=== PATIENT | female | born 1995 | race Caucasian/White ===

== ENCOUNTER 2020-04-05 14:16 | Outpatient (CLI) | payer OTHER, SELFPAY ==
--- NOTE | ~2020-04-05 | US_ITS ---
EXAMINATION: US OB >= 14 weeks Fetus EXAM DATE: 04/05/2020 14:45 INDICATION: For dating. Irregular periods. . Second trimester. TECHNIQUE: Pelvic obstetrical transabdominal sonogram was performed by a technologist. There are mu ltiple grayscale and Doppler images available for interpretation. There are no earlier studies of th is gestation for comparison. FINDINGS: There is a single fetus identified in breech presentation with a heart rate of 163 beats pe r minute. The placenta is located in the posterior position. There is no sonographic evidence of ret roplacental hemorrhage identified. There is subjectively expected amount of amniotic fluid. Placenta l margin to internal cervical os distance is 3 cm. BIOMETRIC DATA: Biparietal diameter (BPD): 4.2cm ----------------> 18 weeks 6 days. Head circumference (HC): 15.6 cm ----------------> 18 weeks 4 days. Abdominal circumference (AC): 12.7 cm ----------> 18 weeks 2 days. Femur length (FL): 2.7 cm --------------------------> 18 weeks 1 day. These measurements are concordant. HC/AC ratio is 1.23 (The 5th -- 95th percentile range is 1.08-1.27. Estimated weight is 232 g +/- 35 g. This is the <3 percentile when the currently reported [facility] gestation age 22 weeks 2 days, clinical estimated date of delivery (SUMMER-OPE) 08/07/2020 is used. F etal estimated gestational age based on measurements from this exam is 18 weeks 3 days, with an estim ated date of delivery (SUMMER-AUA) 09/03. Consider possibility of one period discrepancy between clinical ly suspected and actual implantation given that the measurements on this exam are concordan t. IMPRESSION: 1. Single fetus in breech presentation with heart rate 163 beats per minute. 2. Estimated weight of 232 grams, <3rd percentile using the currently reported clinical gestat ion age of 22 weeks 2 days. Age by this ultrasound with concordant measurements is 18 weeks 3 days w [facility] SUMMER 09/03/2020. Reviewed, dictated and finalized at location A. IMPRESSION: 1. Single fetus in breech presentation with heart rate 163 beats per minute. 2. Estimated weight of 232 grams, <3rd percentile using the currently re ported clinical gestation age of 22 weeks 2 days. Age by this ultrasound with concordant measurements is 18 weeks 3 days with SUMMER 09/03/2020.
== END 2020-04-05 14:17 | disposition home or self-care (01) ==
PROVIDERS: Visit Provider Student in an Organized Health Care Education/Training Program
DX: Z34.90 Encounter for supervision of normal pregnancy, unspecified, unspecified trimester (principal); Z3A.22 22 weeks gestation of pregnancy
CPT/HCPCS: 76805

== ENCOUNTER 2020-07-06 13:43 | Outpatient (CLI) | payer OTHER, SELFPAY ==
[2020-07-06 15:25] LABS: Basophils Percent Auto 0.2 % (0.2-1.2); Eosinophils Absolute Auto 0.2 K/mm3 (0-0.3); Eosinophils Percent Auto 1.6 % (0-4.4); Hematocrit 34.8 % (37.0-47.0); Hemoglobin 11.8 g/dL (12.0-15.0); Immature Granulocyte Absolute 0.13 K/mm3 (0.00-0.031); Immature Granulocyte Percent A 0.9 % (0-0.5); Lymphocytes Absolute Auto 2.25 K/mm3 (0.9-3.2); Mean Corpuscular HGB Conc 33.9 g/dl (32-36); Mean Corpuscular Hemoglobin 29.7 pg (26-34); Mean Corpuscular Volume 87.7 fl (80-100); Mean Platelet Volume 11.1 fl (7.4-10.4); Monocytes Absolute Auto 1.2 K/mm3 (0.1-0.6); Monocytes Percent Auto 8.7 % (2.6-8.5); Neutrophils Absolute Auto 10.2 K/mm3 (1.3-6.7); Neutrophils Percent Auto 72.6 % (45.5-73.1); Platelet Count Result 296 k/mm3 (150-375); Red Blood Count 3.97 M/mm3 (4.2-5.4); White Blood Count 14.1 K/mm3 (4.5-10.0)
[2020-07-06 15:35] LABS: Glucose 1 Hour PP 50gm Dose 98 mg/dL
[2020-07-06 15:38] LABS: Add Urine Microscopic? YES; Appearance Urine Cloudy (Clear); Bacteria Urine Trace /hpf; Bilirubin Urine Negative (Negative); Blood Urine Negative (Negative); Color Urine Yellow (Yellow); Glucose Urine UA Negative (Negative); Ketones Urine Negative (Negative); Leukocyte Esterase Ur 3+ LEU/UL (NEGATIVE); Mucus Urine Moderate /lpf; Nitrate Urine Negative (Negative); Protein Urine 1+ mg/dL (Negative); RBC Urine 0-2 /hpf (0-2); Specific Grav Ur 1.028 (1.001-1.035); Squamous Epithelial Cell Urine Many /hpf (Few); Urobilinogen Urine Negative mg/dL (<2.0)
[2020-07-06 16:40] LABS: Vitamin D 25 Hydroxy 30.2 ng/mL
[2020-07-06 16:54] LABS: Hepatitis B Surface Antigen Negative (Negative)
[2020-07-06 17:10] LABS: Hepatitis C Virus Antibody Negative (Negative)
[2020-07-07 10:21] LABS: Rapid Plasma Reagin Non-Reactive (NonReactive)
[2020-07-10 15:39] LABS: Varicella IgG Antibody <135.00 Index (>=165.00)
[2020-07-12 23:56] LABS: Hematocrit 36.3 % (35.0-45.0); MCH 30.2 pg (27.0-33.0); MCV 91.1 FL (80.0-100.0); RDW 13.8 % (11.0-15.0); Red Blood Cell Count 3.98 Mill/uL (3.80-5.10)
[2020-07-14 19:01] LABS: CF Result NEGATIVE (NEGATIVE)
== END 2020-07-06 13:44 | disposition home or self-care (01) ==
PROVIDERS: Visit Provider Student in an Organized Health Care Education/Training Program
DX: Z34.90 Encounter for supervision of normal pregnancy, unspecified, unspecified trimester (principal); Z3A.00 Weeks of gestation of pregnancy not specified
CPT/HCPCS: 36415; 81001; 81220; 81243; 82306; 82947; 83021; 84443; 85025; 85461; 86592; 86762; 86787; 86803; 87086; 87340

== ENCOUNTER 2020-07-13 16:48 | Outpatient (CLI) | payer OTHER, SELFPAY | END 2020-07-13 16:49 | disposition home or self-care (01) | PROVIDERS: Visit Provider Student in an Organized Health Care Education/Training Program | DX: Z34.03 Encounter for supervision of normal first pregnancy, third trimester (principal); Z3A.32 32 weeks gestation of pregnancy | CPT/HCPCS: 36415; 85461; 90384; 96372; J2790 ==

== ENCOUNTER 2020-08-02 14:39 | Outpatient (CLI) | payer OTHER, SELFPAY ==
[2020-08-02 14:58] VITALS: BP 140/90; PULSE 111
[2020-08-02 15:16] VITALS: BP 140/88; PULSE 114
[2020-08-02 15:31] VITALS: BP 133/76; PULSE 120
[2020-08-02 15:33] LABS: Basophils Percent Auto 0.3 % (0.2-1.2); Eosinophils Absolute Auto 0.2 K/mm3 (0-0.3); Eosinophils Percent Auto 1.5 % (0-4.4); Hemoglobin 10.4 g/dL (12.0-15.0); Immature Granulocyte Percent A 0.9 % (0-0.5); Lymphocytes Absolute Auto 1.84 K/mm3 (0.9-3.2); Lymphocytes Percent Auto 16.7 % (18.3-44.2); Mean Corpuscular HGB Conc 33.5 g/dl (32-36); Mean Corpuscular Hemoglobin 28.9 pg (26-34); Mean Corpuscular Volume 86.1 fl (80-100); Mean Platelet Volume 11.5 fl (7.4-10.4); Monocytes Absolute Auto 0.9 K/mm3 (0.1-0.6); Neutrophils Percent Auto 72.6 % (45.5-73.1); Platelet Count Result 241 k/mm3 (150-375); Red Cell Distribution Width 13.2 % (11.5-14.5)
[2020-08-02 15:38] LABS: Add Urine Microscopic? YES; Appearance Urine Cloudy (Clear); Bacteria Urine Trace /hpf; Bilirubin Urine Negative (Negative); Blood Urine Negative (Negative); Color Urine Yellow (Yellow); Glucose Urine UA Negative (Negative); Ketones Urine Negative (Negative); Leukocyte Esterase Ur 3+ LEU/UL (NEGATIVE); Mucus Urine Few /lpf; Nitrate Urine Negative (Negative); Protein Urine 1+ mg/dL (Negative); RBC Urine 0-2 /hpf (0-2); Specific Grav Ur 1.031 (1.001-1.035); Squamous Epithelial Cell Urine Moderate /hpf (Few); Urobilinogen Urine Negative mg/dL (<2.0); WBC Urine 16-20 /hpf (0-3)
[2020-08-02 15:46] VITALS: BP 127/86; PULSE 93
[2020-08-02 15:58] LABS: Alanine Aminotransferase 23 U/L (4-35); Albumin Level 3.3 g/dL (3.5-5.1); Alkaline Phosphatase 136 U/L (38-126); Anion Gap 5 mmol/L (8-16); Aspartate Amino Transferase 26 U/L (14-36); Bilirubin,Total 0.1 mg/dL (0.2-1.3); Blood Urea Nitrogen 8 mg/dL (7-17); Calcium 8.7 mg/dL (8.4-10.2); Carbon Dioxide 25 mmol/L (22-30); Chloride 101 mmol/L (98-107); Estimated Glomerular Filt Rate > 60; Glucose 103 mg/dL (65-105); Sodium 131 mmol/L (137-145); Uric Acid 3.1 mg/dL (2.5-7.5)
[2020-08-02 16:00] LABS: Creatinine Urine 155.4 mg/dL; Total Protein Urine Random 8 mg/dL
[2020-08-02 16:01] VITALS: BP 125/81; PULSE 106
[2020-08-02 16:38] LABS: HIV 1/2 Ab P24 Ag Result Negative (Negative)
[2020-08-02 17:07] VITALS: BP 125/81; PULSE 111
[2020-08-03 11:40] LABS: Rapid Plasma Reagin Non-Reactive (NonReactive)
== END 2020-08-02 16:54 | disposition home or self-care (01) ==
LOC: ANHOBOP 14:44 → ANHOBPP 14:45
PROVIDERS: Visit Provider Student in an Organized Health Care Education/Training Program
DX: O13.9 Gestational [pregnancy-induced] hypertension without significant proteinuria, unspecified trimester (principal); Z3A.00 Weeks of gestation of pregnancy not specified
CPT/HCPCS: 36415; 59025; 80053; 81001; 82570; 84156; 84550; 85025; 86592; 86703; 87086; 87088; 99199; G0432

== ENCOUNTER → 2020-08-03 | Outpatient (NON) | payer OTHER, SELFPAY ==
[2020-08-03 19:05] VITALS: BMI 34.8
[2020-08-03 20:48] LABS: Collection Time Urine 24 HOURS
[2020-08-03 20:49] LABS: Total Volume 24 Hour Urine 1900 ml
[2020-08-03 20:50] LABS: Patient Weight 209 Lbs
[2020-08-03 20:59] LABS: Creatinine Clearance Urine 165.9 ml/min (75-125); Total Protein Urine 24 Hr 190 MG/DAY (28-141); Total Protein Urine Random 10 mg/dL
== END | disposition home or self-care (01) ==
LOC: ANHOBOP 18:10
PROVIDERS: Visit Provider Student in an Organized Health Care Education/Training Program
DX: O13.9 Gestational [pregnancy-induced] hypertension without significant proteinuria, unspecified trimester (principal); Z3A.00 Weeks of gestation of pregnancy not specified
CPT/HCPCS: 81050; 82575; 84156

== ENCOUNTER 2020-08-16 09:04 | Outpatient (RCR) | payer OTHER, SELFPAY ==
--- NOTE | ~2020-08-16 | US_ITS ---
EXAMINATION: US OB follow up EXAM DATE: 08/16/2020 09:41 INDICATION: Check growth. Estimated weight, EDITH and presentation. 3rd trimester. TECHNIQUE: Pelvic obstetrical transabdominal sonogram was performed by a technologist. There are mu ltiple grayscale and Doppler images available for interpretation. Comparison is made to prior examina tion from 04/05/2020. FINDINGS: There is a single fetus identified in breech presentation with a heart rate of 144 beats pe r minute. The placenta is located in the posterior position. There is no sonographic evidence of ret roplacental hemorrhage identified. The amniotic fluid index is 18.2 centimeters, which is normal. BIOMETRIC DATA: Biparietal diameter (BPD): 9.6cm ----------------> 39 weeks 2 days. Head circumference (HC): 35.1 cm ----------------> 41 weeks 0 days. Abdominal circumference (AC): 34.0 cm ----------> 38 weeks 1 day. Femur length (FL): 7.2 cm --------------------------> 37 weeks 0 days. These measurements are discordant, with a low FL/HC ratio of 20.58 (The 5th -- 95th percentile range is 20.64-23.3). HC/AC ratio is 1.03 (The 5th -- 95th percentile range is 0.87-1.06). Estimated weight is 3465 g +/- 520 g. This is the 76th percentile when the currently reported clinical gestation age 37 weeks 5 days, clinical estimated date of delivery (SUMMER-OPE) 09/01/2020 is us ed. estimated gestational age based on measurements from this exam is 38 weeks 6 days, with an estimated date of delivery (SUMMER-AUA) 08/24/2020. IMPRESSION: 1. Single fetus in breech presentation with heart rate 144 beats per minute. 2. Estimated weight of 3465 grams, 76th percentile using the currently reported clinical gesta tion age of 37 weeks 5 days, SUMMER(OPE) 09/01. 3. Normal EDITH 18.2 cm. 4. Discordant FL/HC ratio, had 2 standard deviations below normal. Reviewed, dictated and finalized at location A. IMPRESSION: 1. Single fetus in breech presentation with heart rate 144 beats per minute. 2. Estimated weight of 3465 grams, 76th percentile using the currently r eported clinical gestation age of 37 weeks 5 days, SUMMER(OPE) 09/01. 3. Normal EDITH 18.2 cm. 4. Discordant FL/HC ratio, had 2 standard deviations below normal.
== END 2020-08-26 08:40 | disposition home or self-care (01) ==
LOC: ANHOBOP 09:04
PROVIDERS: Visit Provider Student in an Organized Health Care Education/Training Program
DX: O26.893 Other specified pregnancy related conditions, third trimester (principal); Z3A.37 37 weeks gestation of pregnancy
CPT/HCPCS: 76816

== ENCOUNTER 2020-08-23 15:39 | Outpatient (CLI) | payer OTHER, SELFPAY ==
[2020-08-23 16:10] VITALS: BP 133/84; PULSE 101
[2020-08-23 16:16] VITALS: BP 129/81; PULSE 97
[2020-08-23 16:28] LABS: Basophils Percent Auto 0.3 % (0.2-1.2); Eosinophils Absolute Auto 0.2 K/mm3 (0-0.3); Eosinophils Percent Auto 1.8 % (0-4.4); Hematocrit 32.3 % (37.0-47.0); Hemoglobin 10.4 g/dL (12.0-15.0); Immature Granulocyte Absolute 0.05 K/mm3 (0.00-0.031); Immature Granulocyte Percent A 0.5 % (0-0.5); Lymphocytes Absolute Auto 1.86 K/mm3 (0.9-3.2); Lymphocytes Percent Auto 16.8 % (18.3-44.2); Mean Corpuscular HGB Conc 32.2 g/dl (32-36); Mean Corpuscular Hemoglobin 27.7 pg (26-34); Mean Corpuscular Volume 86.1 fl (80-100); Mean Platelet Volume 11.8 fl (7.4-10.4); Monocytes Absolute Auto 0.9 K/mm3 (0.1-0.6); Monocytes Percent Auto 8.4 % (2.6-8.5); Neutrophils Percent Auto 72.2 % (45.5-73.1); Platelet Count Result 257 k/mm3 (150-375); Red Blood Count 3.75 M/mm3 (4.2-5.4); Red Cell Distribution Width 13.5 % (11.5-14.5); White Blood Count 11.1 K/mm3 (4.5-10.0)
[2020-08-23 16:31] VITALS: BP 122/81; PULSE 98
[2020-08-23 16:37] LABS: Creatinine Urine 184.1 mg/dL; Total Protein Urine Random 13 mg/dL
[2020-08-23 16:38] LABS: Add Urine Microscopic? YES; Amorphous Sediment Urine Few; Appearance Urine Cloudy (Clear); Bacteria Urine 2+ /hpf; Bilirubin Urine Negative (Negative); Blood Urine 3+ (Negative); Color Urine Yellow (Yellow); Glucose Urine UA Negative (Negative); Ketones Urine Negative (Negative); Leukocyte Esterase Ur 3+ LEU/UL (NEGATIVE); Mucus Urine Few /lpf; Nitrate Urine Negative (Negative); Protein Urine 2+ mg/dL (Negative); Specific Grav Ur 1.027 (1.001-1.035); Squamous Epithelial Cell Urine Many /hpf (Few); Urobilinogen Urine Negative mg/dL (<2.0); WBC Clumps Urine Present /HPF; WBC Urine >75 /hpf (0-3)
[2020-08-23 16:43] LABS: Alanine Aminotransferase 18 U/L (4-35); Albumin Level 3.3 g/dL (3.5-5.1); Alkaline Phosphatase 167 U/L (38-126); Anion Gap 4 mmol/L (8-16); Aspartate Amino Transferase 24 U/L (14-36); Bilirubin,Total 0.3 mg/dL (0.2-1.3); Blood Urea Nitrogen 7 mg/dL (7-17); Calcium 8.8 mg/dL (8.4-10.2); Carbon Dioxide 26 mmol/L (22-30); Chloride 101 mmol/L (98-107); Estimated Glomerular Filt Rate > 60; Glucose 95 mg/dL (65-105); Potassium 4.4 mmol/L (3.4-5.0); Sodium 131 mmol/L (137-145); Uric Acid 4.2 mg/dL (2.5-7.5)
[2020-08-23 17:00] VITALS: BP 122/81; PULSE 100; PULSE 98; RESP 16; TEMP 36.7
== END 2020-08-23 17:20 | disposition home or self-care (01) ==
LOC: ANHOBOP 15:44 → ANHOBPP 15:45
PROVIDERS: Visit Provider Student in an Organized Health Care Education/Training Program
DX: O13.9 Gestational [pregnancy-induced] hypertension without significant proteinuria, unspecified trimester (principal); Z3A.00 Weeks of gestation of pregnancy not specified
CPT/HCPCS: 36415; 59025; 80053; 81001; 82570; 84156; 84550; 85025; 87086; 87088; 99199

== ENCOUNTER 2020-08-25 10:40 | Inpatient (IN) | payer OTHER, SELFPAY ==
[2020-08-25] VITALS (89 sets, daily range): BP systolic 96–145; BP diastolic 46–118; PULSE 72–113; TEMP 36–36.8; O2SAT 97–100; BMI 37.0
[2020-08-25 11:45] LABS: Basophils Percent Auto 0.4 % (0.2-1.2); Eosinophils Absolute Auto 0.2 K/mm3 (0-0.3); Eosinophils Percent Auto 2.1 % (0-4.4); Hematocrit 31.6 % (37.0-47.0); Hemoglobin 10.3 g/dL (12.0-15.0); Immature Granulocyte Absolute 0.05 K/mm3 (0.00-0.031); Immature Granulocyte Percent A 0.5 % (0-0.5); Lymphocytes Absolute Auto 1.94 K/mm3 (0.9-3.2); Mean Corpuscular HGB Conc 32.6 g/dl (32-36); Mean Corpuscular Hemoglobin 27.7 pg (26-34); Mean Corpuscular Volume 84.9 fl (80-100); Mean Platelet Volume 11.6 fl (7.4-10.4); Monocytes Absolute Auto 0.8 K/mm3 (0.1-0.6); Monocytes Percent Auto 8.1 % (2.6-8.5); Neutrophils Absolute Auto 6.7 K/mm3 (1.3-6.7); Neutrophils Percent Auto 68.9 % (45.5-73.1); Platelet Count Result 260 k/mm3 (150-375); Red Blood Count 3.72 M/mm3 (4.2-5.4); Red Cell Distribution Width 13.5 % (11.5-14.5); White Blood Count 9.7 K/mm3 (4.5-10.0)
--- NOTE | 2020-08-25 11:56 | LDADM ---
This patient, Maribell Arenas, was admitted to OB Post 117 on 08/25/20 at 10:40. Plans for labor, pain management and were discussed with patient. Patient/family oriented to hospital policies and general routines including ID bracelet, bed and alarms, visiting hours, pain management, procedures, bathroom and other care routines, personal items, smoking policy, room service/diet and guest tray routines, infant security routines, and visiting hours. Patient/Family are encouraged to report perceived risks to care and to ask questions if they do not understand what they are told or what they should do. See OBIX for further documentation.
[2020-08-25 11:58] LABS: Alanine Aminotransferase 15 U/L (4-35); Albumin Level 3.3 g/dL (3.5-5.1); Alkaline Phosphatase 162 U/L (38-126); Anion Gap 5 mmol/L (8-16); Aspartate Amino Transferase 21 U/L (14-36); Bilirubin,Total 0.2 mg/dL (0.2-1.3); Blood Urea Nitrogen 8 mg/dL (7-17); Calcium 9.2 mg/dL (8.4-10.2); Carbon Dioxide 24 mmol/L (22-30); Chloride 103 mmol/L (98-107); Estimated Glomerular Filt Rate > 60; Glucose 97 mg/dL (65-105); Potassium 4.2 mmol/L (3.4-5.0); Sodium 132 mmol/L (137-145)
[2020-08-25] MEDS: TERBUTALINE SULFATE 1 MG/ML VIAL 0.25 MG SUB-Q (12:12)
[2020-08-25] MEDS: LACTATED RINGERS 1,000 ML 125 ML IV CONT ×2 (13:05→20:19)
[2020-08-25] MEDS: OXYTOCIN 30 UNITS/NS 500 ML 30 UNITS/500 ML BAG 6 UNITS IV CONT (13:06)
--- NOTE | 2020-08-25 15:43 | PM.IMHP ---
H&P: HPI History of Present Illness Date/Time: 08/25/20 15:43 The patient is a currently 39 weeks gestation who presents to labor and delivery for a scheduled external cephalic version. LMP 11/01/19. She is dated by an outside ultrasound on 02/17/20 at 11w gestation. The patient was also recently diagnosed with gestational hypertension and will remain admitted for delivery either via an induction of labor or section depending on the success of the external cephalic version. The patient reports feeling well today without complaints. Denies any vaginal bleeding, leakage of fluid, or contractions. Reports good movement. Also denies any headache, chest pain, shortness of breath, nausea, vomiting, visual disturbances, or right upper quadrant tenderness. The patient had 1st elevated blood pressure in office at approximately 36 weeks of gestation. Laboratory testing was performed and found to be within normal limits. Patient did not have another elevated blood pressure until 2 days ago. Again, laboratory results were within normal limits. BP has remained WNL since then. The fetus was first noted to be in breech presentation at approximately 36 weeks of gestation and has remained in persistent breech presentation since then. Mode of delivery was extensively discussed with patient. The patient has elected to attempt an external cephalic version and has been counseled regarding the risk, benefits, and alternatives to this procedure. The patient was previously scheduled for an external cephalic version attempt twice last week, however, procedure was not performed the 1st time due to patient no-show and the 2nd attempt was not performed as patient arrived too late for procedure. She is aware that due to the estimated size of the fetus as well as slightly more advanced gestational age today, there is a decreased chance of a successful external cephalic version. If external cephalic version is unsuccessful, a section will be performed. Patient understands and agrees with plan. Chief complaint: c/sec Narrative: Maribell Arenas is a 25 year old female Review of Systems Review of Systems: All systems reviewed & are unremarkable except as noted in HPI and below Constitutional: Constitutional: Reports as per HPI, Reports no additional constitutional complaints, Denies chills, Denies fever(s), Denies headache(s) and Denies night sweats Eyes: Eyes: Reports as per HPI and Reports no additional eye complaints ENT: Reports system reviewed and no additional complaints, except as documented, Reports as per HPI, Reports Normal hearing present and Denies headache(s) Cardiovascular: Cardiovascular: Reports as per HPI, Reports no additional cardiovascular complaints, Denies chest pain and Denies dyspnea Respiratory: Respiratory: Reports as per HPI, Reports no additional respiratory complaints, Denies cough and Denies dyspnea Gastrointestinal: Gastrointestinal: Reports as per HPI, Reports no additional gastrointestinal complaints, Denies abdominal pain, Denies change in bowel habits, Denies change in stool character, Denies nausea and Denies vomiting Genitourinary: Genitourinary: Reports no additional female genitourinary complaints, Reports as per HPI, Denies abnormal vaginal bleeding, Denies genital lesions, Denies hot flashes, Denies dyspareunia, Denies pelvic pain, Denies sexual dysfunction, Denies urinary incontinence, Denies vaginal discharge, Denies vaginal dryness and Denies vaginal odor Musculoskeletal: Musculoskeletal: Reports no additional musculoskeletal complaints and Reports as per HPI Integumentary/Breasts: Skin/Breast: Reports system reviewed and no additional complaints, except as docu, Reports as per HPI, Denies breast pain and Denies nipple discharge Neurologic: Reports system reviewed and no additional complaints, except as documented, Reports as per HPI, Reports Normal hearing present and Denies headache(s) Psychiatric: Psychiatri
--- NOTE | 2020-08-25 15:57 | WPDHPUPDATE1 ---
History and Physical Update Update Date/Time: 08/25/20 15:57 History and Physical has been reviewed, including an updated exam of the patient. There are NO changes in the patient's condition. Risks, benefits, and alternatives have been discussed and questions answered. Patient agrees to proceed with procedure.
--- NOTE | 2020-08-25 15:57 | PM.OBPNLAB ---
Pain Control Date/time seen: 08/25/20 15:57 25yo currently 39w presented for attempted ECV. FHR tracing reactive prior to procedure. Limited bedside U/S performed confirming lex breech presentation. IV access established. Terbutaline x 1 dose administered. External cephalic version attempted with several maneuvers under ultrasound guidance. Able to successfully reposition fetus into cephalic presentation. Plan is to admit patient for induction of labor. She will be transferred to a labor room. Will begin IOL with pitocin and perform AROM as soon as possible. Continuous EFM and toco.
--- NOTE | 2020-08-25 16:09 | P.PNOB_ITS ---
Pain Control Date/time seen: 08/25/20 16:09 SVE /2. AROM performed. Clear amniotic fluid noted. EFM category 1. [place] shows ctx every 3-5 mins. Pt currently comfortable. Continue IOL with pitocin.
[2020-08-25] MEDS: fentaNYL CITRATE INJ (*CRX) 100 MCG/2 ML VIAL IV PUSH (20:22)
--- NOTE | 2020-08-25 22:03 | WPDANESEPPF ---
Anes - Initial Pre Proc Eval Procedure: Operation Date: 08/25/20 13:30 Proposed Procedures p Primary Section - Corrina Lindquist MD Date/Time: 08/25/20 22:03 Surgeon: Corrina Lindquist MD Pre Op Diagnosis: c/sec Patient Data Age: 25 Gender: F Height: 5 ft 5 in Weight: 101 kg Last Vital Signs Temp 36.8 C 08/25/20 22:00 Pulse 92 08/25/20 22:01 BP 129/76 08/25/20 22:01 Pulse Ox 99 08/25/20 22:02 Allergies Allergy/AdvReac Type Severity Reaction Status Date / Time No Known Allergies Allergy Verified 08/12/20 15:58 Home Medications Medication Instructions Recorded Confirmed Type PNV cmb#95-ferrous fumarate-FA 1 tablet PO DAILY 08/25/20 08/25/20 History [] Laboratory Tests 08/25/20 08/25/20 08/25/20 11:33 11:33 11:33 WBC 9.7 K/mm3 K/mm3 (4.5-10.0) RBC 3.72 M/mm3 L M/mm3 (4.2-5.4) Hgb 10.3 g/dL L g/dL (12.0-15.0) Hct 31.6 % L % (37.0-47.0) MCV 84.9 fl fl (80-100) MCH 27.7 pg pg (26-34) MCHC 32.6 g/dl g/dl (32-36) RDW 13.5 % % (11.5-14.5) Plt Count 260 k/mm3 k/mm3 (150-375) MPV 11.6 fl H fl (7.4-10.4) Immature Gran % (Auto) 0.5 % % (0-0.5) Neut % (Auto) 68.9 % % (45.5-73.1) Lymph % (Auto) 20.0 % % (18.3-44.2) [place] % (Auto) 8.1 % % (2.6-8.5) Eos % (Auto) 2.1 % % (0-4.4) Baso % (Auto) 0.4 % % (0.2-1.2) Lymph # (Auto) 1.94 K/mm3 K/mm3 (0.9-3.2) [place] # (Auto) 0.8 K/mm3 H K/mm3 (0.1-0.6) Eos # (Auto) 0.2 K/mm3 K/mm3 (0-0.3) Baso # (Auto) 0.0 K/mm3 K/mm3 (0.0-0.1) Abs Immat Gran (auto) 0.05 K/mm3 H K/mm3 (0.00-0.031) Absolute Neuts (auto) 6.7 K/mm3 K/mm3 (1.3-6.7) Absolute Nucleated RBC 0.0 K/mm3 K/mm3 (0.0-0.012) Nucleated RBC % 0.0 % % (0.0-0.2) Sodium Potassium Chloride Carbon Dioxide Anion Gap BUN Creatinine Estim Creat Clear Calc Estimated GFR Glucose Calcium Total Bilirubin AST ALT Alkaline Phosphatase Total Protein Albumin RPR Pending Blood Type A Negative Antibody Screen Positive Antibody Identification Passive Due to RH Imm Glob Antigen Identification Cancelled MAURICIO, IgG Interpret Not Performed MAURICIO, Poly Interpret Negative MAURICIO, Complement Interp Not Performed 08/25/20 11:33 WBC RBC Hgb Hct MCV MCH MCHC RDW Plt Count MPV Immature Gran % (Auto) Neut % (Auto) Lymph % (Auto) [place] % (Auto) Eos % (Auto) Baso % (Auto) Lymph # (Auto) [place] # (Auto) Eos # (Auto) Baso # (Auto) Abs Immat Gran (auto) Absolute Neuts (auto) Absolute Nucleated RBC Nucleated RBC % Sodium 132 mmol/L L mmol/L (137-145) Potassium 4.2 mmol/L mmol/L (3.4-5.0) Chloride 103 mmol/L mmol/L (98-107) Carbon Dioxide 24 mmol/L mmol/L (22-30) Anion Gap 5 mmol/L L mmol/L (8-16) BUN 8 mg/dL mg/dL (7-17) Creatinine 0.50 mg/dL L mg/dL (0.7-1.0) Estim Creat Clear Calc Not Reportable Estimated GFR > 60 (59 - ) Glucose 97 mg/dL mg/dL (65-105) Calcium 9.2 mg/dL mg/dL (8.4-10.2) Total Bilirubin 0.2 mg/dL mg/dL (0.2-1.3) AST 21 U/L U/L (14-36) ALT 15 U/L U/L (4-35) Alkaline Phosphatase 162 U/L H U/L (38-126) Total Protein 6.0 g/dL L g/dL (6.3-8.2) Albumin 3.3 g/dL L g/dL (3.5-5.1) RPR Blood Type Antibody Screen Antibody Identification Antigen Identi
[2020-08-26] VITALS (321 sets, daily range): BP systolic 86–139; BP diastolic 37–83; PULSE 79–142; RESP 15–29; TEMP 36.1–38; O2SAT 88–100
[2020-08-26] MEDS: LACTATED RINGERS 1,000 ML 125 ML IV CONT ×4 (06:21→21:51)
--- NOTE | 2020-08-26 09:39 | PM.OBPNLAB ---
Pain Control Date/time seen: 08/26/20 09:39 Pt doing well this AM. Comfortable with epidural. Slow progress overnight. SVE now 6.5cm (per RN). EFM category 1. [place] shows irregular ctx. Will continue to increase pitocin for now and continue to monitor. May need IUPC if no further change in approx. 2 hrs.
[2020-08-26] MEDS: OXYTOCIN 30 UNITS/NS 500 ML 30 UNITS/500 ML BAG 6 UNITS IV CONT (09:50)
[2020-08-26 11:12] LABS: Rapid Plasma Reagin Non-Reactive (NonReactive)
--- NOTE | 2020-08-26 20:14 | PM.OBPNLAB ---
Pain Control Date/time seen: 08/26/20 20:14 Patient has made very slow progress throughout the day and evening. Pitocin was titrated, both increased and decreased, as there were periods of tachysystole as well as inadequate contractions. An IUPC was placed for enhanced monitoring and whenever contractions were adequate, patient did make slow progress. Patient was noted to be 9cm dilated at approx. 2:30 p.m. Limited ultrasound was performed at approx. 5:00 p.m. and fetus was visualized in OP presentation. Although cervical exam was unchanged, patient was permitted additional time to see if she would progress to fully dilated. However, despite additional interventions, including various position changes, no further progress was made. EFM also showed occasional late decelerations and slightly decreased variability. Pitocin was discontinued and patient was repositioned in the left lateral position. Oxygen by facemask was applied and FHR tracing improved. Discussion had with patient regarding situation, lack of progress, as well as concern for wellbeing. Recommendation made to proceed with a delivery for arrest of dilation. Risks, benefits, and alternatives were discussed with patient and partner. Patient implied an understanding and agrees with plan. All questions and concerns addressed.
[2020-08-26] MEDS: ceFAZolin 2 GM/D5W 50 ML 2 GM/50 ML BAG IVPB (20:26)
--- NOTE | 2020-08-26 21:31 | PM.PROC ---
Procedure Note - Detailed Date of procedure: 08/26/20 Pre-op diagnosis: c/sec Arrest of dilation Post-op diagnosis: same Procedure performed: Primary low transverse section via Pfannenstiel Description of procedure: The patient was taken to the operating room where she was transferred to the operating room table. The patient was positioned in dorsal supine position with a leftward tilt. She was prepped and draped in the usual sterile fashion. Anesthesia was tested and found to be adequate. A Pfannenstiel skin incision was made with a scalpel and carried through to the underlying layer of fascia with the Bovie. The fascia was incised in the midline and the fascial incision was extended laterally with the use of forceps and Smith scissors. The inferior aspect of the fascial incision was grasped with Bong clamps, elevated, and the underlying rectus muscles were dissected off with Smith scissors. Attention was turned to the superior aspect of the fascial incision, which in a similar manner, was grasped with Bong clamps, elevated, and the underlying rectus muscles were also dissected off with Smith scissors. The rectus muscles were in the midline and the peritoneal cavity was entered bluntly. This incision was extended superiorly and inferiorly with good visualization of the bladder and care was taken to avoid blood vessels. Bladder blade was inserted. The vesicouterine peritoneum was identified and entered sharply with Metzenbaum scissors. This incision was extended laterally and a bladder flap was created digitally. The bladder blade was reinserted. A low-transverse uterine incision was made with the scalpel. This incision was extended laterally with bandage scissors. The 's head was grasped and guided to the level of the uterine incision. The bladder blade was removed and the 's head was delivered atraumatically without difficulty. The infant's neck, shoulders, and rest of body were delivered atraumatically with gentle fundal pressure. Terminal meconium was noted. The infant was whimpering softly and the nose and mouth were suctioned with bulb suction. Cord was clamped and cut. The infant was handed off and care was assumed by awaiting nursing staff. A segment of cord was collected for cord gases. Cord blood was collected. The placenta was then delivered spontaneously with gentle massage. The uterus was exteriorized and cleared of all clots and debris. The uterine incision was repaired with 0 Vicryl in a running locked fashion. A 2nd imbricating layer with 0 Monocryl was performed. Two small areas of bleeding beneath the inferior edge of the incision were noted and repaired with [id number] sutures using 0 Vicryl. Excellent hemostasis was noted. On inspection, the uterus, ovaries, and fallopian tubes appeared normal bilaterally. The uterus was replaced inside of the abdominal cavity. The gutters were cleared of all clots and debris. Hemaderm and Seprafilm were applied across the uterine incision and anterior surface of the uterus. The peritoneum was reapproximated with 2-0 Monocryl. The fascia was reapproximated with 0 Vicryl in a running fashion. The subcutaneous layer was irrigated and dried. Pinpoint areas of bleeding were made hemostatic with Bovie. The subcutaneous layer was reapproximated with 0 plain suture and the skin was closed with 4-0 Monocryl in a subcuticular fashion. The skin was then cleansed and dried and Exofin skin adhesive was applied across the incision. A pressure dressing was applied. The patient was transported to the recovery room in stable condition. All sponge, lap, and instrument counts were correct at the end of the procedure x3. The patient tolerated the procedure well. Surgeon: Corrina Lindquist MD Expansion Envelope Maker Hand: Karl Thibodeaux Estimated blood loss (mL): 1,370 IV fluids (mL): 1,300 Urine output (mL): 150 Drains: Yes (lawson catheter) Packing: No Pathology: yes (placenta and cord) Complications: No immediate complica
--- NOTE | 2020-08-26 21:42 | PM.OBPRVD ---
OB - Delivery Note Procedure Delivery date: 08/26/20 Procedure: Procedures Operation Date: 08/25/20 13:30 <No data on this case meets the specified criteria> Operation Date: 08/26/20 20:00 <No data on this case meets the specified criteria> events: Labor Induction Intrapartal events: Failure to Progress in Labor Induction method: per pitocin protocol Delivery augmentation: rupture of membranes Delivery monitor: external FHT, external uterine and internal uterine Route of delivery: Specimen: Yes (placenta and cord) Estimated blood loss (mL): 1,370 Anesthesia type: Epidural Disposition: PACU Complications: No immediate complications [place] Baby Date of : 08/26/20 Time of : 20:49 Weeks of gestation at delivery: 39 Infant gender: Male Weight (pounds): 8 Weight (ounces): 13 presentation: vertex Placenta delivery description: Spontaneous cord vessel description: 3 Vessels score one minute: 5 score five minutes: 9
--- NOTE | 2020-08-26 21:51 | WPDANESEFPP ---
Anes - Eval Final PreProcedure Day of Procedure 08/26/20 21:51 Patient weight: obese Heart: tachycardia Lungs: clear to auscultation Airway: Mallampati scale class II Neurological: alert and oriented ASA classification: III Emergent: no Anesthetic plan: proceed Anesthesia type and monitoring: regional epidural and standard monitoring Other findings: epid for c/s Informed Consent: The patient's anesthetic plan and its attendant risks and benefits were discussed with the patient/family/POA. Questions were solicited and answers provided to the satisfaction of the patient/family/POA.
[2020-08-26] MEDS: OXYTOCIN 30 UNITS/NS 500 ML 30 UNITS/500 ML BAG 125 UNITS IV CONT (22:00)
[2020-08-26] MEDS: KETOROLAC 30 MG/ML VIAL (*BKC) IV PUSH (23:01)
[2020-08-27] VITALS (9 sets, daily range): BP systolic 112–136; BP diastolic 64–75; PULSE 96–109; RESP 15–20; TEMP 36.1–36.9; O2SAT 95–98
--- NOTE | 2020-08-27 00:17 | PC.NURSE ---
Patient transferred to post room #287 via stretcher. Support person present. Oriented to unit, room, information board, rooming in, admission packet and security measures. Patient verbalizes understanding.
[2020-08-27] MEDS: HYDROcodone/acetaminophen (*CRX) 10-325 MG TABLET 1 TAB PO ×4 (02:04→17:09)
[2020-08-27 06:08] LABS: Basophils Percent Auto 0.2 % (0.2-1.2); Hematocrit 29.2 % (37.0-47.0); Hemoglobin 9.6 g/dL (12.0-15.0); Immature Granulocyte Absolute 0.06 K/mm3 (0.00-0.031); Immature Granulocyte Percent A 0.4 % (0-0.5); Lymphocytes Absolute Auto 0.82 K/mm3 (0.9-3.2); Lymphocytes Percent Auto 5.5 % (18.3-44.2); Mean Corpuscular HGB Conc 32.9 g/dl (32-36); Mean Corpuscular Hemoglobin 27.7 pg (26-34); Mean Corpuscular Volume 84.1 fl (80-100); Mean Platelet Volume 11.4 fl (7.4-10.4); Monocytes Absolute Auto 0.6 K/mm3 (0.1-0.6); Monocytes Percent Auto 4.2 % (2.6-8.5); Neutrophils Absolute Auto 13.3 K/mm3 (1.3-6.7); Neutrophils Percent Auto 89.7 % (45.5-73.1); Platelet Count Result 234 k/mm3 (150-375); Red Blood Count 3.47 M/mm3 (4.2-5.4); Red Cell Distribution Width 13.9 % (11.5-14.5); White Blood Count 14.8 K/mm3 (4.5-10.0)
[2020-08-27] MEDS: SIMETHICONE 80 MG TAB.CHEW PO ×2 (08:20→13:49)
[2020-08-27] MEDS: KCL 20 MEQ/D5/0.45% SOD CHL 1,000 ML 125 ML IV CONT (08:22)
[2020-08-27] MEDS: MULTIVIT/MIN/PREN/FOL AC/IRON TABLET 1 TAB PO (09:58)
[2020-08-27] MEDS: DOCUSATE SODIUM 100 MG CAPSULE PO ×2 (09:58→17:09)
[2020-08-27] MEDS: POLYSACCHARIDE IRON COMPLEX 150 MG CAPSULE PO ×2 (09:58→17:09)
[2020-08-27] MEDS: IBUPROFEN 600 MG TABLET PO ×2 (09:59→17:09)
--- NOTE | 2020-08-27 10:52 | WPDANLDNPN2 ---
Anes-Prog Note L&D-Neuraxial Date/Time: 08/27/20 10:52 Neuraxial medications: epidural PF morphine Patient feedback: Patient satisfied with post-operative pain management.
--- NOTE | 2020-08-27 10:52 | WPDANLDPN2 ---
Anes-Prog Note L&D Date/Time: 08/27/20 10:52 Comfortable throughout: section Neuraxial method: epidural Epidural/Spinal procedure site: clean & non-tender Neuro status: Neuro function grossly intact. Cardiovascular status: normal Respiratory status: normal Airway patency: baseline Mental status: baseline Post-Op hydration status: normal Vital Signs: Last Vital Signs Temp 36.9 C 08/27/20 04:15 Pulse 108 H 08/27/20 04:15 Resp 18 08/27/20 04:15 BP 112/64 08/27/20 04:15 Pulse Ox 95 08/27/20 04:15 Pain score (VAS): 0/0 I/O: Intake & Output 08/26/20 08/27/20 08/27/20 23:59 07:59 15:59 Intake Total 2000 400 Output Total 1853 250 Balance 147 150 Post-procedural complaints: none Patient feedback: Patient satisfied with anesthetic care.
--- NOTE | 2020-08-27 11:38 | PM.OBPNVD ---
OB - PN: Subj Subjective Date/time seen: 08/27/20 11:38 Pt doing well. Reports feeling sore. Adequate relief with medication. Reports mild chest discomfort, similar to just around time of C/S. Possibly related to anxiety. Denies any headache, SOB, nausea or vomiting. Tolerated regular diet this AM. No flatus yet. Has not yet ambulated. Lawson catheter in place. OB - PN: Obj Data Labs CBC & Chem 7: 08/27/20 05:56 08/25/20 11:33 Labs: Laboratory Results - last 24 hr 08/27/20 08/27/20 05:56 05:56 WBC 14.8 H RBC 3.47 L Hgb 9.6 L Hct 29.2 L MCV 84.1 MCH 27.7 MCHC 32.9 RDW 13.9 Plt Count 234 MPV 11.4 H Immature Gran % (Auto) 0.4 Neut % (Auto) 89.7 H Lymph % (Auto) 5.[address] [place] % (Auto) 4.2 Eos % (Auto) 0.0 Baso % (Auto) 0.2 Lymph # (Auto) 0.[address] [place] # (Auto) 0.6 Eos # (Auto) 0.0 Baso # (Auto) 0.0 Abs Immat Gran (auto) 0.06 H Absolute Neuts (auto) 13.3 H Absolute Nucleated RBC 0.0 Nucleated RBC % 0.0 Blood Type A Negative Antibody Screen TNP Screen Negative Baby's Blood Type A pos Baby's MAURICIO Positive Doses of RhIg Required 1 OB - PN A/P Assessment and Plan (1) Delivery by section: Status: Acute Assessment and Plan: POD #1 s/p PLTCD Continue routine postoperative care Encourage OOB to chair and ambulation Will d/c lawson today Continue current pain medication regimen Time Spent With Patient Time: Total time spent is greater than 50% in coordination of care (as documented) at patient's floor/unit and/or counseling patient: Exam Const: General: comfortable and no acute distress GI: GI Palp: Yes abdominal tenderness (appropriately tender) and Yes Soft to palpation Other: inc covered with bandage c/d/i : Other: lawson catheter in place Extrem: Right lower extremity: edema (trace) Left lower extremity: edema (trace) Other: venodynes in place
[2020-08-27] MEDS: RHO(D) IMMUNE GLOBULIN 300 MCG SYRINGE IM (13:43)
[2020-08-28] MEDS: IBUPROFEN 600 MG TABLET PO ×3 (02:02→21:27)
[2020-08-28] MEDS: HYDROcodone/acetaminophen (*CRX) 10-325 MG TABLET 1 TAB PO ×5 (02:03→21:27)
--- NOTE | 2020-08-28 06:50 | P.PNOB_ITS ---
OB - PN: Subj Subjective Date/time seen: 08/28/20 06:50 Pt doing well this AM. Reports soreness, however, reasonably controlled with medication. Chest discomfort she experienced yesterday has resolved. Denies any headache, SOB, N/V. Tolerating regular PO diet. Ambulating well. Voiding without difficulty. No flatus yet. Minimal lochia. OB - PN: Obj Data Labs CBC & Chem 7: 08/27/20 05:56 08/25/20 11:33 Labs: Laboratory Results - last 24 hr 08/27/20 08/27/20 05:56 05:56 WBC 14.8 H RBC 3.47 L Hgb 9.6 L Hct 29.2 L MCV 84.1 MCH 27.7 MCHC 32.9 RDW 13.9 Plt Count 234 MPV 11.4 H Immature Gran % (Auto) 0.4 Neut % (Auto) 89.7 H Lymph % (Auto) 5.5 L [place] % (Auto) 4.2 Eos % (Auto) 0.0 Baso % (Auto) 0.2 Lymph # (Auto) 0.82 L [place] # (Auto) 0.6 Eos # (Auto) 0.0 Baso # (Auto) 0.0 Abs Immat Gran (auto) 0.06 H Absolute Neuts (auto) 13.3 H Absolute Nucleated RBC 0.0 Nucleated RBC % 0.0 Blood Type A Negative Antibody Screen TNP Screen Negative Baby's Blood Type A pos Baby's MAURICIO Positive Doses of RhIg Required 1 OB - PN A/P Assessment and Plan (1) Delivery by section: Status: Acute Assessment and Plan: POD#2 s/p PLTCD Doing well Continue routine postoperative care Pain management PRN Encourage ambulation and use of IS Infant was transferred to yesterday, pt may have pass to leave for 4 hrs this afternoon to see infant Anticipate dc home tomorrow Time Spent With Patient Time: Total time spent is greater than 50% in coordination of care (as doc umented) at patient's floor/unit and/or counseling patient: Exam Const: General: comfortable and no acute distress GI: Inspection: non-distended GI Palp: Yes Soft to palpation and No Tenderness to palpation present (GI) Other: inc c/d/i Extrem: Right lower extremity: edema (trace) Left lower extremity: edema (trace)
[2020-08-28] MEDS: MULTIVIT/MIN/PREN/FOL AC/IRON TABLET 1 TAB PO (07:34)
[2020-08-28 07:35] VITALS: BP 129/82; PULSE 96; RESP 18; TEMP 36.9
[2020-08-28] MEDS: POLYSACCHARIDE IRON COMPLEX 150 MG CAPSULE PO ×2 (07:35→16:39)
[2020-08-28] MEDS: DOCUSATE SODIUM 100 MG CAPSULE PO ×2 (07:35→16:39)
--- NOTE | 2020-08-28 17:41 | PC.NURSE ---
Patient left on a 4 hour pass to [facility] to see baby. Patient taken in wheelchair to waiting car driven by her significant other. Patient and test car driver signed therapeutic leave consent.
[2020-08-28 21:30] VITALS: BP 136/82; PULSE 96; RESP 18; TEMP 36.7; O2SAT 99
[2020-08-28] MEDS: SIMETHICONE 80 MG TAB.CHEW PO (21:31)
--- NOTE | 2020-08-28 21:37 | PC.NURSE ---
Pt returned from [facility] @ [id number]. Physical assessment and pain medication completed.
[2020-08-29] MEDS: HYDROcodone/acetaminophen (*CRX) 10-325 MG TABLET 1 TAB PO ×2 (01:37→12:22)
[2020-08-29] MEDS: IBUPROFEN 600 MG TABLET PO ×2 (05:04→12:22)
[2020-08-29] MEDS: HYDROcodone/acetaminophen (*CRX) 5-325 MG TABLET 1 TAB PO ×2 (05:04→08:19)
[2020-08-29 08:10] VITALS: BP 150/72; PULSE 111; RESP 16; TEMP 37.7; O2SAT 94
[2020-08-29] MEDS: MULTIVIT/MIN/PREN/FOL AC/IRON TABLET 1 TAB PO (08:19)
[2020-08-29] MEDS: POLYSACCHARIDE IRON COMPLEX 150 MG CAPSULE PO (08:19)
[2020-08-29] MEDS: DOCUSATE SODIUM 100 MG CAPSULE PO (08:19)
[2020-08-29] MEDS: SIMETHICONE 80 MG TAB.CHEW PO (08:26)
--- NOTE | 2020-08-29 10:53 | P.PNOB_ITS ---
OB - PN: Subj Subjective Date/time seen: 08/29/20 10:53 Interval history: pain well controlled Tolerating regular diet. baby boy at [facility] and is doing well.Currenlty on IV antibiotics Patient comments: pain well controlled and tolerating diet [place] baby status: doing well, bottle feeding well and NICU feeding status: exclusively bottle feeding OB - PN: Obj Data Labs CBC & Chem 7: 08/27/20 05:56 08/25/20 11:33 OB - PN A/P Plan day: 3 Plan: routine care, discharge home and other (F/U in 1 week for incision checkup) Comments: Encourage ambulation. Bottle feeding Instructed. Time Spent With Patient Time: Total time spent is greater than 50% in coordination of care (as documented) at patient's floor/unit and/or counseling patient: Time with patient: 15 - 25 minutes Review of Systems Constitutional: Constitutional: Reports as per HPI, Reports no additional constitutional complaints and Denies headache(s) Cardiovascular: Cardiovascular: Reports as per HPI and Reports no additional cardiovascular complaints Respiratory: Respiratory: Reports as per HPI, Denies cough and Denies dyspnea Gastrointestinal: Gastrointestinal: Reports as per HPI, Reports no additional gastrointestinal complaints, Denies nausea and Denies vomiting Genitourinary: Genitourinary: Reports no additional female genitourinary complaints and Denies dysuria Neurologic: Denies headache(s) Exam Const: General: comfortable, no acute distress, alert and awake Segun entation/consciousness: patient oriented x3 Resp: Effort & Inspection: normal respiratory effort Auscultation: clear to auscultation bilaterally Cardio: Rate: regular rate GI: Auscultation: normal bowel sounds Other: Fundus firm below umbilcus Incision: C/D/I Psych: Appearance: grossly normal Affect: normal affect Attitude: cooperative Judgement: Good judgement present (Psych)
--- NOTE | 2020-08-29 10:57 | P.DS_ITS ---
DS: Admitting Diagnosis Admitting Diagnosis Admitting Diagnosis: c/sec OB - DS: Summary OB Procedures : External version OB Procedures Intrapartum: OB Procedures: : None Peripartum Data Delivery Method: Section Procedures: Procedures Operation Date: 08/25/20 13:30 <No data on this case meets the specified criteria> Operation Date: 08/26/20 20:00 Actual Procedures Side Surgeon p Section Not Applicable Corrina Lindquist MD complications: none Status at Discharge Functional status at discharge: independent ambulation Overall status at discharge: patient is progressing back to baseline Time Spent with Patient Time attestation: Total time spent providing and/or coordinating discharge services: Time spent: Less than 30 minutes Exam Const: General: comfortable, no acute distress, alert and awake Orientation/consciousness: patient oriented x3 Resp: Effort & Inspection: normal respiratory effort Auscultation: clear to auscultation bilaterally Cardio: Rate: regular rate GI: Inspection: non-distended GI Palp: Yes Soft to palpation and Yes Tenderness to palpation present (GI) (appropriate for surgery) Auscultation: normal bowel sounds Other: Incision: C/D/I Fundus firm below umbilicus Psych: Appearance: grossly normal Affect: normal affect Attitude: cooperative Thought content: Yes Normal thought content present Judgement: Good judgement present (Psych) DS: Data Data Completed and Pending Pending studies at discharge: Pending at discharge 08/26/20 22:08 Surgical [PTH] Routine Discharge Plan Discharge Attending physician on discharge: Nany Marcum Discharging Clinician: Nany Marcum Patient Disposition: Home, Self-Care Activity: as tolerated and pelvic rest Diet: regular Patient Instructions: How to Stop Smoking (DC), Antibiotic Form Stand Alone Forms: General Discharge Information Follow-up/Referrals: Corrina Lindquist MD [Physician] - Discharge Medications: New hydrocodone-acetaminophen [[place]] 10-325 mg Tablet 1 tab PO Q3H PRN (Reason: Pain Rated 7-10) Qty: 20 RF: 0 docusate sodium 100 mg Capsule 100 mg PO BID Qty: 60 RF: 0 ibuprofen 600 mg Tablet 600 mg PO Q6H PRN (Reason: Cramping) Qty: 60 RF: 0 polysaccharide iron complex 150 mg iron Capsule 150 mg PO BIDWM Qty: 60 RF: 0 Continued PNV cmb#95-ferrous fumarate-FA [] 28 mg iron- 800 mcg Tablet 1 tablet PO DAILY RF: 0 Date of admission: 08/25/20 10:40 Primary Care Provider: PHYSICIAN,BIOFUELS PRODUCTION TECHNICIAN Admitting Provider: Corrina Lindquist Attending physician on admission: Corrina Lindquist
--- NOTE | 2020-08-29 12:00 | PC.NURSE ---
Patient instructed to view the discharge video Mother & Baby Care, The First Two Weeks . Patient was given the opportunity and encouraged to ask questions. Patient verbalized understanding of information shared and has been given the mother/baby guide for home reference.
== END 2020-08-29 12:38 | disposition home or self-care (01) | DRG 540 ==
LOC: ANHLDR 08-26 19:54 → ANHOB2 08-29 10:59 → ANHLDR 08-30 12:52 → ANHOB2 08-30 12:52 → ANHOBPP 08-30 12:52
PROVIDERS: Admitting Provider Student in an Organized Health Care Education/Training Program; Visit Provider Obstetrics & Gynecology
PROC: 10D00Z1 Extraction of Products of Conception, Low, Open Approach (ICD-10-PCS; CPT 59514; principal; 2020-08-26 20:00)
DX: O32.1XX0 Maternal care for breech presentation, not applicable or unspecified (principal); O62.0 Primary inadequate contractions; O75.2 Pyrexia during labor, not elsewhere classified; O76 Abnormality in fetal heart rate and rhythm complicating labor and delivery; O13.4 Gestational [pregnancy-induced] hypertension without significant proteinuria, complicating childbirth; O99.334 Smoking (tobacco) complicating childbirth; F17.210 Nicotine dependence, cigarettes, uncomplicated; O99.214 Obesity complicating childbirth; E66.9 Obesity, unspecified; Z3A.39 39 weeks gestation of pregnancy; Z37.0 Single live birth
CPT/HCPCS: 36415; 80053; 85025; 85461; 86592; 86850; 86870; 86880; 86900; 86901; 86902; 86971; 88307; 90384; A9270; C1765; J0290; J0690; J1200; J1885; J2274; J2590; J2790; J2795; J3010; J3105; J3480; J7120

== ENCOUNTER 2020-09-03 03:02 | Inpatient (IN) | payer OTHER, SELFPAY ==
--- NOTE | ~2020-09-03 | CT_ITS ---
EXAMINATION: CT guide absc cath placement DATE: 09/05/2020 17:15 INDICATION: Post section on signal abscess. TECHNIQUE: The procedure including the risks and benefits was discussed with the patient. Risks discu ssed included bleeding and infection. The patient understood the risks and benefits and agreed to pro ceed. The patient was confirmed to be receiving appropriate antibiotic coverage. Protocol Officer CT images of t he pelvis and lower abdomen were obtained following administration of 100 mL Omnipaque-350 intravenou s contrast. The skin overlying the right anterior pelvis was prepped and draped in usual sterile fash ion. Anesthetic was administered with 1% lidocaine subcutaneously. The patient also received conscio us sedation utilizing a total dosage of 150 mcg fentanyl and 1 mg Versed IV. Attention was first turn ed to the more inferior gas and fluid-filled abscess cavity anterior to the uterus. An 18 [place]vian troc ar needle was inserted into the collection utilizing CT guidance. A J-wire was advanced into the flui d collection. CT images were obtained and demonstrate the wire passing through the fluid collection a nd across an approximately 3 cm wide, 0.5 cm craniocaudal likely dehiscent surgical defect in the ant erior wall of the lower uterine segment and into the cervical canal. Following discussion with Dr. Kurtz ah was elected to continue with placement of abscess drain within the abscess cavity anterior to the defect. Utilizing Seldinger technique the tract was serially dilated over the wire to 10 [place]ian. A 10 [place]vian drainage catheter was advanced into the fluid collection however there was insufficient space to allow for the length of catheter required for loop formation to be placed without extending into the defect in the uterine wall. Therefore the catheter was removed over the wire and replaced with an 8.5 [place] catheter with small diameter loop. The catheter was placed over the wire and the loop for med and appropriately positioned within the fluid collection on the final images. The wire was remove d and the catheter was stitched to the skin with suture. Approximately 4 mL of relatively clear serou s appearing oranges yellow fluid was aspirated and sent to the lab for Gram stain and cultures. Similarly an 18-gauge trocar needle was advanced utilizing CT guidance into the right side of a secon d loculated fluid collection positioned more cephalad along the anterior margin of the uterine fundus . A J-wire was advanced through the needle with position confirmed by CT. Utilizing Seldinger eSight ue the tract was dilated to 9 [place] and an 8.5 [place]vian catheter was placed over the wire with positio n confirmed by CT. The loop was formed with position confirmed by CT. The wire was removed and the ca theter stitched to the CT scan with suture. Antibiotic appointment and sterile dressings were applied to both catheters. Approximately 2 mL thicker reddish-yellow fluid was aspirated and sent to the lab for Gram stain and cultures. Both catheters were then attached to suction drainage with the more cep halad catheter continued to drain a small amount of clear serous appearing yellowish fluid. There wer e no immediate complications. The dose-length product was 1030.96 mGy-cm. FINDINGS: CT images demonstrate the more inferior catheter within a loculated gas and fluid/clot julian ection positioned anterior to a likely dehiscent surgical wound of the anterior wall of the lower jf rine segment. CT images also demonstrate a more cephalad catheter position within the right side of a bilobed loculated fluid collection positioned anterior to the uterine fundus. IMPRESSION: 1. Successful CT-guided abscess drainage catheter into 2 loculated fluid collections within the pelvi s as detailed above.. 2. 4 mL and 2 mL of fluid from the more cephalad and caudal fluid collections respectively were sent for aerobic and anaerobic cultures. 3. The
[2020-09-03 03:00] VITALS: BP 136/75; PULSE 97; RESP 16; TEMP 36.3; O2SAT 97; BMI 36.3
--- NOTE | 2020-09-03 03:33 | PC.NURSE ---
This patient, Maribell Arenas, was admitted to [facility] Surg Room 312-01. Patient/family oriented to hospital policies and general routines including ID bracelet, bed and alarms, visiting hours, pain management, procedures, bathroom and other care routines, personal items, smoking policy, room service/diet, and visiting hours. Valuables list has been completed. Information on how to activate the Rapid Response Team has been discussed. Patient/Family are encouraged to report perceived risks to care and to ask questions if they do not understand what they are told or what they should do.
[2020-09-03 04:14] VITALS: BMI 38.7
[2020-09-03] MEDS: SODIUM CHLORIDE 0.9% IV 1,000 ML 125 ML IV CONT ×2 (04:41→21:00)
[2020-09-03] MEDS: HYDROcodone/acetaminophen (*CRX) 10-325 MG TABLET 1 TAB PO ×3 (04:42→18:05)
[2020-09-03 06:00] VITALS: BP 139/90; PULSE 99; RESP 16; TEMP 36.5; O2SAT 97
[2020-09-03 06:34] LABS: Basophils Absolute Auto 0.1 K/mm3 (0.0-0.1); Basophils Percent Auto 0.3 % (0.2-1.2); Eosinophils Absolute Auto 0.2 K/mm3 (0-0.3); Hematocrit 24.4 % (37.0-47.0); Hemoglobin 7.9 g/dL (12.0-15.0); Immature Granulocyte Absolute 1.14 K/mm3 (0.00-0.031); Immature Granulocyte Percent A 5.7 % (0-0.5); Lymphocytes Absolute Auto 1.88 K/mm3 (0.9-3.2); Lymphocytes Percent Auto 9.4 % (18.3-44.2); Mean Corpuscular HGB Conc 32.4 g/dl (32-36); Mean Corpuscular Hemoglobin 26.6 pg (26-34); Mean Corpuscular Volume 82.2 fl (80-100); Mean Platelet Volume 9.3 fl (7.4-10.4); Monocytes Absolute Auto 0.8 K/mm3 (0.1-0.6); Neutrophils Percent Auto 79.6 % (45.5-73.1); Nucleated Red Blood Cells Perc 0.1 % (0.0-0.2); Platelet Count Result 422 k/mm3 (150-375); Red Blood Count 2.97 M/mm3 (4.2-5.4); Red Cell Distribution Width 14.1 % (11.5-14.5); White Blood Count 20.1 K/mm3 (4.5-10.0)
[2020-09-03 06:52] LABS: Alanine Aminotransferase 13 U/L (4-35); Albumin Level 2.6 g/dL (3.5-5.1); Alkaline Phosphatase 143 U/L (38-126); Anion Gap 8 mmol/L (8-16); Aspartate Amino Transferase 22 U/L (14-36); Bilirubin,Total 0.3 mg/dL (0.2-1.3); Blood Urea Nitrogen 7 mg/dL (7-17); Calcium 7.6 mg/dL (8.4-10.2); Carbon Dioxide 24 mmol/L (22-30); Chloride 104 mmol/L (98-107); Estimated CRCL calculation 137 ml/min; Estimated Glomerular Filt Rate > 60; Glucose 89 mg/dL (65-105); Potassium 3.7 mmol/L (3.4-5.0); Sodium 136 mmol/L (137-145)
[2020-09-03 07:31] LABS: Anisocytosis 1+ (NORMAL); Hypochromasia 1+ (NORMAL); Platelet Estimate Adequate (Adequate)
[2020-09-03 08:00] VITALS: PULSE 99; RESP 16; O2SAT 97
[2020-09-03] MEDS: PANTOPRAZOLE 40 MG TABLET PO (08:17)
[2020-09-03] MEDS: IBUPROFEN 600 MG TABLET PO ×3 (08:17→23:03)
--- NOTE | 2020-09-03 11:23 | PM.IMHP ---
H&P: HPI History of Present Illness Date/Time: 09/03/20 11:23 Chief complaint: Post-op infection Narrative: Maribell Arenas is a 25 year old female who has primary CD on 08/26/2020 for arrest of dilation by Dr Lindquist. Her post op course was uneventful and was discharged home on 08/29/2020.Pt has post op appointment yesterday for incision checkup but cancelled as was not feeling good and was rescheduled for 09/06/2020.Her baby boy was discharged day before yesterday from NICU ,[facility].Pt was feeling hot and cold since yesterday and had a temp of 100.3 F yesterday morning .Slept all day and evening and around midnight noticed some drainage from incision and so went to [place] [facility]. Per ER physician her temp was 99 F at presentation. Pt underwent CT scan which showed around 7 cm of intraabdominal collection of fluid suggestive of abscess and also was draining fluid from incision.So Pt was transferred to [facility]. pt received Vancomycin and Zosyn. Since her presentation to hospital, no fever.Denies nausea/Vomiting.Per pt feels better. Review of Systems Constitutional: Constitutional: Reports as per HPI and Reports no additional constitutional complaints ENT: Reports as per HPI and Reports Normal hearing present Cardiovascular: Cardiovascular: Reports as per HPI, Denies chest pain and Denies lightheadedness Respiratory: Respiratory: Reports as per HPI, Denies cough and Denies dyspnea Gastrointestinal: Gastrointestinal: Reports as per HPI, Denies abdominal pain, Denies nausea and Denies vomiting Genitourinary: Genitourinary: Reports no additional female genitourinary complaints and Reports as per HPI Musculoskeletal: Musculoskeletal: Reports as per HPI Integumentary/Breasts: Skin/Breast: Reports as per HPI Neurologic: Denies headache(s) Psychiatric: Psychiatric: Reports as per HPI PMFSH Past Medical History Medical History Gestational hypertension Postoperative wound infection Tobacco use during Surgical History Surgical History (Updated 08/27/20 @ 11:49 by Corrina Lindquist MD) [place] teeth removed Social History Social History Years smoked: 5 Smoking status: Current every day smoker Tobacco type: cigarettes Second hand tobacco smoke exposure: Yes Alcohol intake: former Substance use: never Gender identity (if verbalized by the patient): Female Spiritual care concerns: No Meds Home Medications and Allergies Home Medications Medication Instructions Recorded Confirmed Type PNV cmb#95-ferrous fumarate-FA 1 tablet PO DAILY 08/25/20 09/03/20 History [] docusate sodium 100 mg PO BID #60 cap 08/29/20 09/03/20 Rx hydrocodone-acetaminophen [[place]] 1 tab PO Q3H PRN #20 tablet 08/29/20 09/03/20 Rx ibuprofen 600 mg PO Q6H PRN #60 tablet 08/29/20 09/03/20 Rx polysaccharide iron complex 150 mg PO BIDWM #60 cap 08/29/20 09/03/20 Rx Allergies Allergy/AdvReac Type Severity Reaction Status Date / Time No Known Allergies Allergy Verified 08/12/20 15:58 Vital Signs Vital Signs - 24 hr 09/03/20 03:00 09/03/20 06:00 09/03/20 08:00 Temperature 36.3 C L 36.5 C Pulse Rate 97 99 99 Respiratory Rate 16 16 16 Blood Pressure 136/75 139/90 Pulse Oximetry 97 97 97 Exam Const: General: comfortable and no acute distress Eyes: General: appearance normal, both eyes and all related structures Resp: Auscultation: clear to auscultation bilaterally Cardio: Rate: regular rate Rhythm: regular rhythm GI: Inspection: non-distended GI Palp: Yes Soft to palpation and Yes Tenderness to palpation present (GI) (around incision site.Incision intact,) Auscultation: normal bowel sounds Other: On applying pressure around incision, very minimal sero sanguinous drainage noted from middle part of incision. incision still intact. Psych: Mental Status: mental status grossly normal Affect: normal affect
[2020-09-03 14:00] VITALS: BP 142/89; PULSE 93; RESP 16; TEMP 36.7; O2SAT 98
[2020-09-03 18:52] LABS: Hemoglobin 8.3 g/dL (12.0-15.0); Mean Corpuscular HGB Conc 33.2 g/dl (32-36); Mean Corpuscular Hemoglobin 27.6 pg (26-34); Mean Corpuscular Volume 83.1 fl (80-100); Mean Platelet Volume 9.3 fl (7.4-10.4); Platelet Count Result 441 k/mm3 (150-375); Red Blood Count 3.01 M/mm3 (4.2-5.4); Red Cell Distribution Width 14.3 % (11.5-14.5); White Blood Count 19.5 K/mm3 (4.5-10.0)
[2020-09-03 21:16] LABS: INR 1.3; Prothrombin Time 15.8 Seconds (11.1-14.7)
[2020-09-03 22:00] VITALS: BP 141/93; PULSE 82; RESP 16; TEMP 35.9; O2SAT 97
[2020-09-04] MEDS: HYDROcodone/acetaminophen (*CRX) 10-325 MG TABLET 1 TAB PO ×3 (00:52→20:07)
[2020-09-04] MEDS: SODIUM CHLORIDE 0.9% IV 1,000 ML 125 ML IV CONT ×3 (05:46→20:08)
[2020-09-04 06:00] VITALS: BP 143/94; PULSE 86; RESP 16; TEMP 36.3; O2SAT 98
[2020-09-04] MEDS: PANTOPRAZOLE 40 MG TABLET PO (08:38)
[2020-09-04] MEDS: DOCUSATE SODIUM 100 MG CAPSULE PO ×2 (09:59→20:08)
--- NOTE | 2020-09-04 11:04 | PM.GYNPNOP ---
FISHER WEIR - A/P Assessment and plan (1) Postoperative wound infection: Code(s): T81.49XA - Infection following a procedure, other surgical site, initial encounter Status: Acute Assessment and Plan: HD #2,doing well Afebrile Continue IV antibiotics As per Radiologist, drainage of abscess will be performed on 09/05/2020 Encourage ambulation Wound care instruction provided . Informed nurse to call [facility] for wound culture result if available. Postoperative Postoperative status: doing well Time Spent With Patient Time: Total time spent is greater than 50% in coordination of care (as documented) at patient's floor/unit and/or counseling patient: Time with patient: less than 15 minutes FISHER WEIR- PN:Subj Post-Op Subjective Date/time seen: 09/04/20 11:04 Interval history: pt feeling much better. Pain well controlled. Ambulating and urinating without difficulty. Subjective: patient reports feeling better, pain is well controlled, patient is tolerating oral intake and patient reports nausea Review of Systems Constitutional: Constitutional: Reports as per HPI Cardiovascular: Cardiovascular: Reports no additional cardiovascular complaints and Denies chest pain Respiratory: Respiratory: Denies cough and Denies dyspnea Gastrointestinal: Gastrointestinal: Reports no additional gastrointestinal complaints, Denies nausea and Denies vomiting Genitourinary: Genitourinary: Reports no additional female genitourinary complaints and Reports as per HPI Exam Const: General: comfortable, no acute distress, alert and awake Resp: Auscultation: clear to auscultation bilaterally Cardio: Rate: regular rate Rhythm: regular rhythm GI: Inspection: non-distended Auscultation: normal bowel sounds Other: Incision: Intact, no drainage noted Neuro: General: oriented to person, oriented to place, oriented to time and moves all extremities Extrem: General: normal to inspection and calf tenderness Psych: Mental Status: mental status grossly normal FISHER WEIR - PN: Obj Data Vital Signs Vital Signs: Vital Signs - 24 hr 09/03/20 14:00 09/03/20 22:00 09/04/20 06:00 Temperature 36.7 C 35.9 C L 36.3 C L Pulse Rate 93 82 86 Respiratory Rate 16 16 16 Blood Pressure 142/89 H 141/93 H 143/94 H Pulse Oximetry 98 97 98 Intake/Output Intake/Output: Intake & Output 09/01/20 09/02/20 09/03/20 09/04/20 23:59 23:59 23:59 23:59 Intake Total 3060 2600 Output Total 1300 900 Balance 1760 1700 Meds/Results Medications: Active Medications Generic Name Dose Route Start Last Admin Trade Name Freq PRN Reason Stop Dose Admin Acetaminophen 650 mg 09/03/20 03:55 Tylenol Tablet PO Q4H PRN Fever Hydrocodone Bitart/Acetaminophen 1 tab 09/03/20 04:05 09/04/20 08:38 [place] 10-325 Mg PO 1 tab Q6H PRN Administration Pain Rated 7-10 Docusate Sodium 100 mg 09/04/20 09:55 09/04/20 09:59 Colace Capsule PO 100 mg Q12HR RHYS Administration Piperacillin/Tazobactam/Dextrose 3.375 gm in 50 mls @ 100 mls/hr 09/03/20 06:00 09/04/20 05:47 Zosyn 3.375 Gm/D5w 50ml Pm IVPB 100 mls/hr Q6H RHYS Administration Sodium Chloride 1,000 mls @ 125 mls/hr 09/03/20 04:05 09/04/20 08:36 Normal Saline Iv IV CONT 125 mls/hr .Q8H RHYS Administration Vancomycin HCl 1,500 mg in 500 mls @ 333.333 mls/hr 09/03/20 09:00 09/04/20 08:37 Vancomycin 1,500 Mg/D5w 500 Ml IVPB 333 mls/hr Q12H RHYS Administration Ibuprofen 600 mg 09/03/20 03:56 09/03/20 23:03 Motrin PO 600 mg Q6H PRN Administration Pain Rated 4-6 Pantoprazole Sodium 40 mg 09/03/20 09:00 09/04/20 08:38 Protonix PO 40 mg QAM RHYS Administration Labs CBC & Chem 7: 09/03/20 18:47 09/03/20 06:10 Labs: Laboratory Results - last 24 hr 09/03/20 09/03/20 18:47 21:00 WBC 19.5 H RBC 3.01 L Hgb 8.3 L Hct 25.0 L MCV 83.1 MCH 27.6 MCHC 33.2 RDW 14.3 Plt Count 4
[2020-09-04 11:56] LABS: Hematocrit 26.6 % (37.0-47.0); Hemoglobin 8.7 g/dL (12.0-15.0); Mean Corpuscular HGB Conc 32.7 g/dl (32-36); Mean Corpuscular Hemoglobin 27.1 pg (26-34); Mean Corpuscular Volume 82.9 fl (80-100); Mean Platelet Volume 9.7 fl (7.4-10.4); Platelet Count Result 542 k/mm3 (150-375); Red Blood Count 3.21 M/mm3 (4.2-5.4); Red Cell Distribution Width 14.4 % (11.5-14.5); White Blood Count 19.1 K/mm3 (4.5-10.0)
--- NOTE | 2020-09-04 12:09 | PC.NURSE ---
Called [facility] to obtain information on whether or not they tested the fliud they removed from this patient. Spoke with the warehouse foreman that stated he would give me a call back.
[2020-09-04 14:00] VITALS: BP 140/92; PULSE 99; RESP 18; TEMP 37.2; O2SAT 96
[2020-09-04] MEDS: IBUPROFEN 600 MG TABLET PO (16:09)
[2020-09-04 20:37] LABS: Vancomycin Trough 6.8 ug/mL (10.0-20.0)
[2020-09-04 22:00] VITALS: BP 144/91; PULSE 79; RESP 18; TEMP 36.4; O2SAT 97
[2020-09-05] VITALS (26 sets, daily range): BP systolic 124–151; BP diastolic 75–110; PULSE 74–90; RESP 18–26; TEMP 36.9–37.1; O2SAT 92–98
[2020-09-05] MEDS: HYDROcodone/acetaminophen (*CRX) 10-325 MG TABLET 1 TAB PO ×2 (05:14→18:23)
[2020-09-05 06:12] LABS: Hematocrit 25.4 % (37.0-47.0); Hemoglobin 8.2 g/dL (12.0-15.0); Mean Corpuscular HGB Conc 32.3 g/dl (32-36); Mean Corpuscular Hemoglobin 27.2 pg (26-34); Mean Corpuscular Volume 84.1 fl (80-100); Mean Platelet Volume 9.7 fl (7.4-10.4); Platelet Count Result 550 k/mm3 (150-375); Red Blood Count 3.02 M/mm3 (4.2-5.4); Red Cell Distribution Width 14.3 % (11.5-14.5); White Blood Count 16.1 K/mm3 (4.5-10.0)
[2020-09-05 06:22] LABS: Estimated CRCL calculation 119 ml/min; Estimated Glomerular Filt Rate > 60
[2020-09-05 06:32] LABS: INR 1.5; Prothrombin Time 17.3 Seconds (11.1-14.7)
--- NOTE | 2020-09-05 07:56 | PM.GYNPNOP ---
TRAY CASTING MACHINE OPERATOR - A/P Assessment and plan (1) Postoperative wound infection: Code(s): T81.49XA - Infection following a procedure, other surgical site, initial encounter Status: Acute Assessment and Plan: IR drainage and placement of drain planned for today by interventional radiology. Patient is aware. Wound culture results not back yet from [employer]. RN has checked once this morning and will check again later today. Continue IV antibiotics. Plan to observe overnight tonight after drainage with potential discharge tomorrow. Patient is aware and agrees with this plan. Continue SCDs for DVT prophylaxis. (2) Anemia: Code(s): D64.9 - Anemia, unspecified Status: Acute Assessment and Plan: Blood count has remained stable (Hgb ranging from 8.2 to 8.6) in last few days. Pulse normal and BP mildly elevated. No symptoms other than mild SOB with deep breath, which may be related to discomfort due to abscess. Continue to observe vital signs, symptoms, and labs closely. (3) Gestational hypertension: Code(s): O13.9 - Gestational [-induced] hypertension without significant proteinuria, unspecified trimester Status: Acute Assessment and Plan: Asymptomatic and BP mildly elevated (none in severe range). No signs or symptoms of pre-E so continue to observe. Time Spent With Patient Time: Total time spent is greater than 50% in coordination of care (as documented) at patient's floor/unit and/or counseling patient: Time with patient: less than 15 minutes TRAY CASTING MACHINE OPERATOR- PN:Subj Post-Op Subjective Date/time seen: 09/05/20 07:56 Interval history: She denies sweats/chills. Lochia is similar to menses (has slowed down the last two days). She has mild SOB, mainly when trying to take a deep breath. Denies dizziness, chest pain, or extreme fatigue. Pain well controlled. She has had 3 BMs since delivery. Appetite decreased but no N/V. No urinary complaints. Scant drainage from incision. No STALLINGS/visual changes. Subjective: patient reports feeling better Review of Systems Review of Systems: All systems reviewed & are unremarkable except as noted in HPI and below Exam Const: General: comfortable, no acute distress, alert and awake Resp: Auscultation: clear to auscultation bilaterally Cardio: Rate: regular rate Rhythm: regular rhythm GI: Inspection: non-distended Auscultation: normal bowel sounds Other: Soft, appropriately tender. Incision intact without erythema, active drainage, or induration Extrem: General: no calf tenderness and no edema Psych: Mental Status: mental status grossly normal TRAY CASTING MACHINE OPERATOR - PN: Obj Data Vital Signs Vital Signs: Vital Signs - 24 hr 09/04/20 14:00 09/04/20 22:00 09/05/20 06:00 Temperature 37.2 C 36.4 C 36.9 C Pulse Rate 99 79 84 Respiratory Rate 18 18 18 Blood Pressure 140/92 H 144/91 H 151/93 H Pulse Oximetry 96 97 96 Intake/Output Intake/Output: Intake & Output 09/02/20 09/03/20 09/04/20 09/05/20 23:59 23:59 23:59 23:59 Intake Total 3060 6570 250 Output Total 1300 2850 2550 Balance 1760 3720 -2300 Meds/Results Medications: Active Medications Generic Name Dose Route Start Last Admin Trade Name Freq PRN Reason Stop Dose Admin Acetaminophen 650 mg 09/03/20 03:55 Tylenol Tablet PO Q4H PRN Fever Hydrocodone Bitart/Acetaminophen 1 tab 09/03/20 04:05 09/05/20 05:14 [place] 10-325 Mg PO 1 tab Q6H PRN Administration Pain Rated 7-10 Docusate Sodium 100 mg 09/04/20 09:55 09/04/20 20:08 Colace Capsule PO 100 mg Q12HR RHYS Administration Piperacillin/Tazobactam/Dextrose 3.375 gm in 50 mls @ 100 mls/hr 09/03/20 06:00 09/05/20 05:50 Zosyn 3.375 Gm/D5w 50ml Pm IVPB Infused Q6H RHYS Infusion Sodium Chloride 1,000 mls @ 125 mls/hr 09/03/20 04:05 09/04/20 20:08 Normal Saline Iv IV CONT 125 mls/hr .Q8H RHYS Administration Vancomycin HCl 1,750 mg in 500 mls @ 250 mls/hr 09/05/20 06:00
[2020-09-05] MEDS: IBUPROFEN 600 MG TABLET PO ×2 (09:27→20:45)
[2020-09-05] MEDS: SODIUM CHLORIDE 0.9% IV 1,000 ML 125 ML IV CONT ×2 (12:31→19:23)
[2020-09-05] MEDS: PANTOPRAZOLE 40 MG TABLET PO (18:24)
[2020-09-05] MEDS: DOCUSATE SODIUM 100 MG CAPSULE PO ×2 (18:24→20:45)
[2020-09-06] MEDS: HYDROcodone/acetaminophen (*CRX) 10-325 MG TABLET 1 TAB PO ×2 (00:38→14:04)
[2020-09-06 01:43] VITALS: BP 136/83; PULSE 92; RESP 18; TEMP 36.6; O2SAT 98
[2020-09-06 06:00] VITALS: BP 142/92; PULSE 73; RESP 18; TEMP 36.5; O2SAT 97
--- NOTE | 2020-09-06 08:06 | PM.GYNPNOP ---
HEALTH EDUCATION ASSISTANT - A/P Assessment and plan (1) Postoperative wound infection: Code(s): T81.49XA - Infection following a procedure, other surgical site, initial encounter Status: Acute Assessment and Plan: Clinically much improved. Afebrile several days. Still awaiting wound culture sensitivities, so we'll try to get that result from [place] today to guide oral antibiotics for potential discharge later today. Will plan to leave drains in place until office follow up within the next week (2) Anemia: Code(s): D64.9 - Anemia, unspecified Status: Acute Assessment and Plan: Asymptomatic, and bleeding has slowed. Check CBC again this morning and continue to observe bleeding, vitals, and symptoms. (3) Gestational hypertension: Code(s): O13.9 - Gestational [-induced] hypertension without significant proteinuria, unspecified trimester Status: Acute Assessment and Plan: BP has been normal for last 24 hours or so, asymptomatic. Continue to observe Postoperative Procedures: Procedures Operation Date: 09/05/20 14:30 Actual Procedures Side Surgeon p Radiology Procedure Mod.Sed.Rn Gabriel Sparks MD Time Spent With Patient Time: Total time spent is greater than 50% in coordination of care (as documented) at patient's floor/unit and/or counseling patient: Time with patient: less than 15 minutes HEALTH EDUCATION ASSISTANT- PN:Subj Post-Op Subjective Date/time seen: 09/06/20 08:06 Interval history: She denies sweats/chills. Lochia is less than menses (has slowed since yesterday). Denies dizziness, chest pain, SOB, or extreme fatigue. Pain well controlled. Regular BMs last few days. Appetite decreased but no N/V. No urinary complaints. No STALLINGS/visual changes. She desires to go home Review of Systems Review of Systems: All systems reviewed & are unremarkable except as noted in HPI and below Exam Const: General: comfortable and no acute distress Resp: Auscultation: clear to auscultation bilaterally Cardio: Rate: regular rate Rhythm: regular rhythm GI: Inspection: non-distended Auscultation: normal bowel sounds Other: soft, appropriately tender. Two drains in place. One has no drainage at all. The other has about 20 mL serous fluid in the collection cannister. Extrem: General: no calf tenderness and no edema Psych: Mental Status: mental status grossly normal HEALTH EDUCATION ASSISTANT - PN: Obj Data Vital Signs Vital Signs: Vital Signs - 24 hr 09/05/20 14:40 09/05/20 15:00 09/05/20 15:05 Temperature Pulse Rate 80 79 80 Respiratory Rate 23 H 20 21 H Blood Pressure 136/90 126/79 129/78 Pulse Oximetry 96 95 95 09/05/20 15:10 09/05/20 15:15 09/05/20 15:20 Temperature Pulse Rate 86 81 88 Respiratory Rate 26 H 20 26 H Blood Pressure 133/84 131/82 127/86 Pulse Oximetry 95 95 94 09/05/20 15:25 09/05/20 15:30 09/05/20 15:35 Temperature Pulse Rate 86 80 75 Respiratory Rate 23 H 19 21 H Blood Pressure 143/86 H 143/75 H 127/79 Pulse Oximetry 94 92 95 09/05/20 15:40 09/05/20 15:45 09/05/20 15:50 Temperature Pulse Rate 74 78 75 Respiratory Rate 23 H 23 H 20 Blood Pressure 130/82 133/81 134/87 Pulse Oximetry 95 96 97 09/05/20 15:55 09/05/20 16:00 09/05/20 16:05 Temperature Pulse Rate 78 80 90 Respiratory Rate 23 H 20 24 H Blood Pressure 142/99 H 133/81 140/77 Pulse Oximetry 95 95 95 09/05/20 16:10 09/05/20 16:15 09/05/20 16:20 Temperature Pulse Rate 86 80 78 Respiratory Rate 23 H 21 H 23 H Blood Pressure 141/86 H 148/110 H 124/93 H Pulse Oximetry 95 97 97 09/05/20 16:25 09/05/20 16:30 09/05/20 16:35 Temperature Pulse Rate 89 81 85 Respiratory Rate 20 22 H 26 H Blood Pressure 136/93 H 136/75 130/80 Pulse Oximetry 97 97 96 09/05/20 16:40 09/05/20 19:04 09/05/20 22:00 Temperature 37.1 C Pulse Rate 80 80 Respiratory Rate 24 H 18 Blood Pressure 133/87 140/89 Pulse Oximetry 96 95 98 09/06/20 01:43 09/06/20 06:00 Temperature 36.6 C
[2020-09-06] MEDS: IBUPROFEN 600 MG TABLET PO (08:12)
[2020-09-06] MEDS: DOCUSATE SODIUM 100 MG CAPSULE PO (08:13)
[2020-09-06 08:37] LABS: Hematocrit 28.8 % (37.0-47.0); Hemoglobin 9.3 g/dL (12.0-15.0); Mean Corpuscular HGB Conc 32.3 g/dl (32-36); Mean Corpuscular Hemoglobin 27.4 pg (26-34); Mean Corpuscular Volume 84.7 fl (80-100); Mean Platelet Volume 9.5 fl (7.4-10.4); Platelet Count Result 635 k/mm3 (150-375); Red Cell Distribution Width 14.6 % (11.5-14.5); White Blood Count 15.1 K/mm3 (4.5-10.0)
[2020-09-06] MEDS: SODIUM CHLORIDE 0.9% IV 1,000 ML 125 ML IV CONT (09:56)
[2020-09-06] MEDS: PANTOPRAZOLE 40 MG TABLET PO (09:57)
--- NOTE | 2020-09-06 10:38 | PM.DS ---
DS: Admitting Diagnosis Admitting Diagnosis Admitting Diagnosis: Post-op infection DS: Discharge Diagnosis Discharge Diagnosis (1) Postoperative wound infection: Code(s): T81.49XA - Infection following a procedure, other surgical site, initial encounter Status: Acute (2) Anemia: Code(s): D64.9 - Anemia, unspecified Status: Acute DS: Summary Hospital Course Reason for hospitalization: Postoperative wound infection Hospital Course: She was transferred from [place] (accepted by Dr. Nany Marcum) Monday 09/03 and found to have intraabdominal abscess. She was started on IV piperacillin and vancomycin. Interventional radiology was unavailable to drain the abscess until Saturday, so she had three fluid collections drained and two drains left in place on the afternoon of 09/05. She has remained afebrile throughout her hospital stay and is clinically doing very well. She had anemia on admission, and hemoglobin has remained stable throughout hospital stay. Her bleeding has slowed over the past few days and is less than menses now. She would like to be discharged home and is being sent home on bactrim (based on wound culture sensitivtities) po bid for 10 days, iron, ibuprofen and norco prn. Drains are in place. She will follow up with Dr. Lindquist within the next 3-7 days. Time spent discussing smoking cessation with patient: 3 to 10 minutes Status at Discharge Functional status at discharge: independent ambulation Overall status at discharge: patient is progressing back to baseline Time Spent with Patient Time attestation: Total time spent providing and/or coordinating discharge services: Time spent: Less than 30 minutes DS: Data Data Completed and Pending Labs on day of discharge: Labs from last 24 hours 09/06/20 08:25 WBC 15.1 H RBC 3.40 L Hgb 9.3 L Hct 28.8 L MCV 84.7 MCH 27.4 MCHC 32.3 RDW 14.6 H Plt Count 635 H MPV 9.5 Preliminary micro results at discharge 09/05/20 17:08 Anaerobic Culture - Preliminary Abscess 09/05/20 14:38 Anaerobic Culture - Preliminary Abscess Discharge Plan Discharge Attending physician on discharge: Nany Marcum Discharging Clinician: Jenniffer Carrion Patient Disposition: Home, Self-Care Activity: may shower and pelvic rest Diet: regular Wound Care Instructions: incision open to air Patient Instructions: Antibiotic Form, How to Stop Smoking (DC), Pain Management (GEN) Stand Alone Forms: General Discharge Information Follow-up/Referrals: Corrina Lindquist MD [Physician] - 1 Week Discharge Medications: New hydrocodone-acetaminophen [[place]] 5-325 mg tablet 1 tablet PO Q4H PRN (Reason: pain) Qty: 30 RF: 0 sulfamethoxazole-trimethoprim [Bactrim DS] 800-160 mg tablet 1 tablet PO Q12H Qty: 20 RF: 0 Continued PNV [id number] fumarate-FA [] 28 mg iron- 800 mcg Tablet 1 tablet PO DAILY RF: 0 polysaccharide iron complex 150 mg iron Capsule 150 mg PO BIDWM Qty: 60 RF: 0 docusate sodium 100 mg Capsule 100 mg PO BID Qty: 60 RF: 0 ibuprofen 600 mg Tablet 600 mg PO Q6H PRN (Reason: Cramping) Qty: 60 RF: 0 Discontinued hydrocodone-acetaminophen [[place]] 10-325 mg Tablet 1 tab PO Q3H PRN (Reason: Pain Rated 7-10) Qty: 20 RF: 0 Date of admission: 09/04/20 11:37 Primary Care Provider: PHYSICIAN,FIREFIGHTER Admitting Provider: Nany Marcum Attending physician on admission: Nayn Marcum
[2020-09-06 14:00] VITALS: BP 144/95; PULSE 80; RESP 18; TEMP 36.4; O2SAT 98
--- NOTE | 2020-10-03 08:33 | WPDMODSED ---
Moderate Sedation Note-Pt Data Patient Data Allergies Allergy/AdvReac Type Severity Reaction Status Date / Time No Known Allergies Allergy Verified 09/13/20 15:54 Home Medications Medication Instructions Recorded Confirmed Type docusate sodium 100 mg PO BID #60 cap 08/29/20 09/03/20 Rx ibuprofen 600 mg PO Q6H PRN #60 tablet 08/29/20 09/03/20 Rx hydrocodone-acetaminophen [[place]] 1 tablet PO Q4H PRN #30 tablet 09/06/20 Rx sulfamethoxazole-trimethoprim 1 tablet PO Q12H #20 tablet 09/06/20 Rx [Bactrim DS] polysaccharide iron complex 150 mg 150 mg PO BIDWM cap 09/09/20 History iron capsule Sedation/Anesthesia: No previous sedation/anesthesia problems (including family history). PMFSH Past Medical History Medical History Gestational hypertension Postoperative wound infection Tobacco use during Surgical History Surgical History [place] teeth removed Family History Family History Grandparent Diabetes mellitus Acute myocardial infarction Breast cancer Hypertension Pacemaker Social History Social History Years smoked: 5 Smoking status: Current every day smoker Tobacco type: cigarettes Second hand tobacco smoke exposure: Yes Alcohol intake: former Substance use: never Gender identity (if verbalized by the patient): Female Spiritual care concerns: No Mod Sed Physical Exam Physical Exam Pre Procedural Exam: Normal: Appearance, Lungs, Heart Rate and Heart Rhythm Hours since solid foods: 12 Hours since liquid intake: 12 Internal Medicine - PN: Obj Da Meds/Results Radiology Results: ITS Impressions Catheter Placement CT 09/05/20 17:24 IMPRESSION: 1. Successful CT-guided abscess drainage catheter into 2 loculated fluid collections within the pelvis as detailed above.. 2. 4 mL and 2 mL of fluid from the more cephalad and caudal fluid collections respectively were sent for aerobic and anaerobic cultures. 3. The catheter will be managed by Dr. Marcum and colleagues. 4. Approximately 4 x 0.5 cm defect in the anterior wall of the lower uterine segment likely a dehiscent section wound. Labs CBC & Chem 7: 09/06/20 08:25 09/05/20 05:36 ASA Classification/Sedation ASA Classification/Sedation ASA Class: II Emergent: No Risks: Risks, benefits and alternatives explained and patient/family accepted plan for sedation. Patient re-evaluated immediately prior to sedation.
== END 2020-09-06 15:05 | disposition home or self-care (01) | DRG 561 ==
PROVIDERS: Radiology Diagnostic Radiology; Admitting Provider Obstetrics & Gynecology; Visit Provider Obstetrics & Gynecology
PROC: 0W9J30Z Drainage of Pelvic Cavity with Drainage Device, Percutaneous Approach (ICD-10-PCS; principal; 2020-09-05 14:30)
DX: O86.03 Infection of obstetric surgical wound, organ and space site (principal); O90.81 Anemia of the puerperium; O13.5 Gestational [pregnancy-induced] hypertension without significant proteinuria, complicating the puerperium; O99.335 Smoking (tobacco) complicating the puerperium; F17.210 Nicotine dependence, cigarettes, uncomplicated
CPT/HCPCS: 36415; 75989; 80053; 80202; 82565; 85025; 85027; 85610; 87070; 87075; 87076; 87205; 96361; 96365; 96366; 96367; A9270; C1729; C1769; G0378; G0379; J2250; J2543; J3010; J3370; J7030; Q9967

== ENCOUNTER 2020-09-26 14:22 | Outpatient (CLI) | payer OTHER, SELFPAY ==
--- NOTE | ~2020-09-26 | CT_ITS ---
EXAMINATION: CT abdomen pelvis w con DATE: 09/26/2020 14:46 INDICATION: Follow-up abscess TECHNIQUE: Computed tomography (CT) of the abdomen and pelvis was performed with 100 cc Omnipaque 350 intravenous contrast. The dose-length product was 472.54 mGy-cm. Automated exposure control and iter ative reconstruction technique were employed. COMPARISON: CT dated 09/03/2020 and 09/05/2020 FINDINGS: Small right pleural effusion. Heart size normal. Lung bases unremarkable. Small subcentimet er hypodensity right hepatic lobe, most likely benign. The spleen, pancreas, adrenal glands and kidne ys are unremarkable. Nonobstructive bowel gas pattern. Small amount of free fluid in the pelvis. No d iscrete abscess identified on current study. No free air. Small fat-containing umbilical hernia. Gall bladder is present. Mild lumbar spondylosis. IMPRESSION: 1. Interval resolution of pelvic abscess. Small amount of residual free fluid in the pelvis. 2: Small right pleural effusion. Reviewed, dictated and finalized at location A. IMPRESSION: 1. Interval resolution of pelvic abscess. Small amount of residual free fluid i n the pelvis. 2: Small right pleural effusion.
== END 2020-09-26 14:23 | disposition home or self-care (01) ==
PROVIDERS: Visit Provider Student in an Organized Health Care Education/Training Program
DX: R19.00 Intra-abdominal and pelvic swelling, mass and lump, unspecified site (principal); J90 Pleural effusion, not elsewhere classified
CPT/HCPCS: 74177; Q9967

== ENCOUNTER 2023-12-18 13:55 | Outpatient (CLI) | payer OTHER, SELFPAY ==
[2023-12-18 14:37] LABS: Hemoglobin A1C 5.6 % (<5.7)
== END 2023-12-18 13:56 | disposition home or self-care (01) ==
LOC: ANHLAB 13:58
PROVIDERS: Visit Provider Nurse Practitioner Family
DX: T14.8XXA Other injury of unspecified body region, initial encounter (principal)
CPT/HCPCS: 36415; 83036